=== PATIENT | female | born 1995 | race American Indian/Alaskan Native ===

== ENCOUNTER 2016-09-08 21:22 | Emergency (ER) | payer SELFPAY ==
[2016-09-08 21:51] VITALS: BP 112/75
[2016-09-08 23:21] LABS: Bacteria,Urine 1+ /HPF (Negative); Bilirubin,Urine NEG (Negative); Blood,Urine NEG (Negative); Ketones,Urine NEG (Negative); Leukocyte Esterase,Urine SM (Negative); Mucus,Urine FEW /HPF; Nitrite,Urine POS (Negative); Protein,Urine <15 mg/dL mg/dL (Negative); Urobilinogen,Urine < 2.0 mg/dL (<2.0)
[2016-09-09] MEDS ORDERED: ROCEPHIN IM ONE (02:28)
[2016-09-09] MEDS ORDERED: XYLOCAINE 1% MPF 5 mL INFILTRATI ONE (02:28)
[2016-09-09] MEDS ORDERED: ZITHROMAX PO ONE (02:28)
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
== END 2016-09-09 03:38 | disposition home or self-care (01) ==
LOC: ED 21:22
DX: T76.21XA Adult sexual abuse, suspected, initial encounter (principal); N39.0 Urinary tract infection, site not specified; F17.200 Nicotine dependence, unspecified, uncomplicated; F12.10 Cannabis abuse, uncomplicated; I45.6 Pre-excitation syndrome
CPT/HCPCS: 81001; 81025; 87591; 96372; 99283; J0696